=== PATIENT | female | born 1950 | race Caucasian/White ===

== ENCOUNTER → 2021-09-11 | Outpatient (CLI) | payer MEDICARE ==
[~2021-09-11] MED LIST: CHLORDIAZEPO-A1 EACH; CLONAZEPAM 1 MG1 M1; NEXIUM 40 MG CA40 M1 PO
== END ==
LOC: SJCVCIMAG 08:43
PROVIDERS: ATTEND Internal Medicine
DX: R00.2 Palpitations (principal); K21.9 Gastro-esophageal reflux disease without esophagitis; I10 Essential (primary) hypertension; Z82.49 Family history of ischemic heart disease and other diseases of the circulatory system; Z88.0 Allergy status to penicillin; Z88.1 Allergy status to other antibiotic agents; Z79.899 Other long term (current) drug therapy